=== PATIENT | female | born 1950 ===

== ENCOUNTER 2025-03-18 07:06 | Outpatient (RCR) | payer MEDICARE, SELFPAY | END 2025-03-18 23:59 | disposition home or self-care (01) | LOC: RPT 07:06 | PROVIDERS: ATTENDING PHYSICIAN Family Medicine | DX: I89.0 Lymphedema, not elsewhere classified (principal); Z73.6 Limitation of activities due to disability; R53.1 Weakness | CPT/HCPCS: 97110; 97162; 97530 ==

== ENCOUNTER 2025-04-15 12:27 | Outpatient (RCR) | payer MEDICARE, SELFPAY | END 2025-04-15 23:59 | disposition home or self-care (01) | LOC: RPT 12:27 | PROVIDERS: ATTENDING PHYSICIAN Family Medicine | DX: I89.0 Lymphedema, not elsewhere classified (principal); Z73.6 Limitation of activities due to disability; R53.1 Weakness | CPT/HCPCS: 97016; 97110; 97530 ==